=== PATIENT | male | born 1995 | race Two or more races ===

== ENCOUNTER 2019-09-26 13:01 | Emergency (ER) | payer MEDICAID ==
[~2019-09-26] VITALS: Ht 172.7 cm; Wt 86.4 kg
[2019-09-26 13:42] VITALS: BP 150/80
[2019-09-26] MEDS ORDERED: azithromycin 250mg tablet PO ONE (13:50)
[2019-09-26] MEDS ORDERED: CefTRIAXone 250MG IM Kit w/LIDOcaine IM ONE (13:50)
[2019-09-26] MEDS ORDERED: metroNIDAZOLE 500mg tablet PO ONE (13:50)
[2019-09-26] MEDS ORDERED: FLUC100T PO (14:00)
[2019-09-26 14:18] LABS: CLARITY,URINE CLOUDY (Clear); COLOR,URINE YELLOW (Yellow); GLUCOSE, URINE NEGATIVE (Neg); KETONES,URINE NEGATIVE (Neg); LEUKOCYTE ESTERASE ,URINE TRACE (Neg); NITRITES, URINE NEGATIVE (Neg); OCCULT BLOOD,URINE NEGATIVE (Neg); PROTEIN,URINE NEGATIVE (Neg); UA COLLECTION TYPE VOIDED; UROBILINOGEN,URINE >=8.0 E.U/dL (0.2-1.0)
[2019-09-26 14:23] LABS: MUCUS STRANDS MANY /LPF (Neg); SQUAMOUS EPITHELIAL CELL,UR FEW /LPF (FEW)
[2019-09-26 14:24] LABS: BACTERIA,URINE FEW /HPF (Neg); RBC,URINE 0-2 /HPF (0-2); WBC,URINE 20-30 /HPF (0-4)
== END 2019-09-26 14:33 | disposition home or self-care (01) ==
LOC: ER 13:02
DX: A64 Unspecified sexually transmitted disease (principal); R36.9 Urethral discharge, unspecified; Z79.899 Other long term (current) drug therapy
CPT/HCPCS: 36415; 81001; 87088; 87491; 87591; 96372; 99283; J0696; J3490

== ENCOUNTER 2025-06-12 21:26 | Emergency (ER) | payer MEDICAID ==
[2025-06-12] MEDS: morphine 4 MG/ML inj SYRINge IV ONE (21:49)
[2025-06-12] MEDS: ondansetron/PF 4mg/2ml inj IV ONE (21:50)
[2025-06-12 21:55] VITALS: TEMP 98.2
--- NOTE | 2025-06-12 22:07 | Physician Documentation ---
History of Present Illness ~ Chief Complaint: Abdominal Pain Stated Complaint: CP Time Seen by MD: 21:40 Source: patient Mode of Arrival: Ambulatory Exam Limitations: no limitations HPI Chief Complaint: Abdominal pain Caveat: None Independent Historians: None History of Present Illness: Patient is a 30-year-old man who has a distant history of alcoholism. Patient states that he has been sober for nine months. Patient comes in complaining of acute epigastric pain that began earlier this evening after eating [employer]. Patient had been juicing for a month to help treat his diabetes. Patient is not on any medications. Patient believes he has had a heart attack in the past but has never had any workup confirming that. Patient has associated nausea. No vomiting. No diarrhea. No fever. No alleviating or exacerbating factors. The pain is sharp, constant and nonradiating. Review of systems: All systems were reviewed and are negative except for what is indicated in the history of present illness. Past Medical History: Type 2 diabetes Past Surgical History: None Social History: Former tobacco user, smokes marijuana, denies other drug use, sober from alcohol for nine months. Medications: Reviewed as documented Nursing Notes Allergies: Reviewed as documented in Nursing Notes Medication Reconciliation Allergies: Coded Allergies: No Known Allergies (Unverified , 06/12/25) Past Medical History Past Medical History: No Pertinent History Past Surgical History: noncontributory Alcohol Use: None Drug Use: none Review of Systems All Other Systems at this time: Reviewed and Negative ROS Patient denies any other acute symptoms other than above. All other systems are negative Physical Exam Vital Signs: RN Vital Signs have been reviewed: Yes, Temperature: 98.2, Source: Oral, Heart Rate: 81, Respiratory Rate: 16, BP: 151/103, Pulse Oximetry: 99 Oxygen Flow Rate: 0 Pulse Oximetry Reflects: adequate oxygenation Physical Exam General Appearance: Moderate distress HEENT: Normal OP, moist oral mucosa, PERRL, EOMI Neck: supple, normal ROM, trachea midline Pulmonary: No respiratory distress, CTA, BS equal Cardiac: RRR, no murmur, rub or gallop, GI: nondistended, soft, NONTENDER, normal bowel sounds, no guarding, no rebound Extremities: normal ROM, no swelling, non-tender Skin: intact, dry, warm, no rashes Neuro: AAOx3, speech is clear, no focal motor weakness Psych: normal affect, good eye contact, no apparent hallucination, normal speech Progress Results/Orders Results/Orders Orders - MARKO ALCANTAR MD Electrocardiogram (06/12/25 ) Chest,Single View (06/12/25 22:20) Monitor (06/12/25 22:01) Saline Lock (06/12/25 22:01) Oxygen (06/12/25 22:01) Hs Troponin I W Calculations (06/13/25 01:01) Urinalysis, Cult If Indicated (06/12/25 22:01) Straight Cath For Urine Sample (06/12/25 22:01) Ultrasound Of Abdomen (06/12/25 ) Completed Orders - MARKO ALCANTAR MD Morphine 4mg/Ml Inj. (Morphine Inj.) (06/12/25 21:45) Ondansetron Inj. (Zofran 4mg/2ml Vial) (06/12/25 21:45) Chest,Single View (06/12/25 22:20) Cbc/Diff (06/12/25 22:01) BMP (06/12/25 22:01) PBNP (06/12/25 22:01) Hs Troponin I W Calculations (06/12/25 22:01) Hs Troponin I W Calculations (06/13/25 00:01) Lipase (06/12/25 22:01) Ultrasound Of Abdomen (06/12/25 ) Liver Panel (06/12/25 21:51) Ketorolac Trometh 15mg/Ml Vial (Toradol (06/13/25 00:05) Mag & Alum Hydrox/Simeth Susp (Maalox Or (06/13/25 01:15) Sucralfate Tablet (Carafate Tablet) (06/13/25 01:15) Lidocaine 2% Viscous (Xylocaine 2% Visco (06/13/25 01:15) Medications Received in ER Medications (Trade) Dose Ordered Sig/Enrike Route PRN Reason Start Time Stop Time Status Last Admin Dose Admin (morphine inj.) 4 mg ONCE ONCE IV 06/12/25 21:45 06/12/25 21:47 DC 06/12/25 21:49 4 MG (Zofran 4mg/2ml vial) 4 mg ONCE ONCE IV 06/12/25 21:45 06/12/25 21:47 DC 06/12/25 21:50 4 MG (Toradol injection) 15 mg ONCE ONCE IV 06/13/25 00:05 06/13/25 00:06 DC 06/13/25 00:15 15 MG Vital Signs 06/12/25 06/12/25 06/12/25 06/12/25 21:29 21:49 21:55 21:58 Temp 97.8 98.2 Pulse 65 81 Resp 15 30 18 16 B/P (MAP) 151/103 (119) Pulse Ox 100 99 O2 Flow Rate 0 06/12/25 06/13/25 06/13/25 22:56 00:15 01:16 Pulse 67 68 Resp 18 16 16 B/P (MAP) 133/48 (76) 123/76 (92) Pulse Ox 97 96 O2 Flow Rate 0 Laboratory Tests Test 06/12/25 21:51 06/12/25 23:55 06/13/25 01:05 White Blood Count 8.0 Red Blood Count 5.09 Hemoglobin 12.3 L Hematocrit 38.1 L Mean Corpuscular Volume 74.8 L Mean Corpuscular Hemoglobin 24.2 L Mean Corpuscular Hemoglobin Concent 32.4 L Red Cell Distribution Width 15.8 H Platelet Count 270 Mean Platelet Volume 8.5 Neutrophils (%) (Auto) 39.8 L Lymphocytes (%) (Auto) 47.3 Monocytes (%) (Auto) 9.7 Eosinophils (%) (Auto) 2.4 Basophils (%) (Auto) 0.8 Neutrophils # (Auto) 3.2 Lymphocytes # (Auto) 3.8 Monocytes # (Auto) 0.8 Eosinophils # (Auto) 0.2 Basophils # (Auto) 0.1 CBC Comment Sodium Level 142 Potassium Level 3.5 Chloride Level 108 H Carbon Dioxide Level 25.7 Anion Gap 8 Blood Urea Nitrogen 9 Creatinine 1.22 H Estimated GFR/1.73 m2 69 BUN/Creatinine Ratio 7.4 L Glucose Level 105 H Calcium Level 9.5 Total Bilirubin 0.2 Direct Bilirubin 0.1 Aspartate Amino Transf (AST/SGOT) 25 Alanine Aminotransferase (ALT/SGPT) 47 Alkaline Phosphatase 81 Troponin I High Sensitivity 8 9 Pro-B-Type Natriuretic Peptide 159 H Total Protein 7.1 Albumin 3.9 Globulin 3.2 Albumin/Globulin Ratio 1.2 Lipase 37 Chemistry Comments Troponin I High Sens Percent Delta 12 Troponin I Hi Sens Absolute Change 1 Medical Decision Making Findings Differential diagnosis includes but is not limited to: Biliary colic, cholelithiasis, choledocholithiasis, gastritis, gastric ulcer, peptic ulcer, acute pancreatitis EKG independent interpretation: PERFORMED AT 10:07 P.M.. NORMAL SINUS RHYTHM, HEART RATE 71, NORMAL AXIS, NONSPECIFIC ST CHANGES Chest x-ray, single view, indication: CHEST PAIN Independent interpretation: LUNGS ARE CLEAR, NORMAL MEDIASTINUM, NORMAL CARDIAC [place] ABDOMINAL ULTRASOUND, INDICATION: EPIGASTRIC PAIN Impression: Gallbladder sludging with mild wall thickening. No sonographic chino's sign. Findings are equivocal for cholecystitis. If there is persistent clinical concern, HIDA scan may be obtained to further evaluate. Increased hepatic parenchymal echogenicity which is most commonly seen with fatty infiltration. Laboratory data independent interpretation: CBC: Anemia with a hemoglobin of 12.3 CMP: LFTs unremarkable. Creatinine is just mildly elevated at 1.22 Normal lipase. Troponins: Eight, nine Emergency department course/medical decision-making: Patient presents with upper abdominal pain. However the patient has really no abdominal tenderness. However given the acute nature of the abdominal pain an ultrasound of the gallbladder was obtained. Ultrasound findings showed some sludge and possibly mild gallbladder wall thickening. However the patient's presentation is not consistent with acute cholecystitis. Patient does have some sludge. Patient is given morphine 4 mg IV and Zofran 4 mg IV and Toradol 15 mg IV. Patient is feeling better. He has some residual pain. Patient is also given a GI cocktail. Patient is thought to be stable for discharge. There was no evidence of an acute medical or surgical emergency. There is a slim possibility the patient may have acute cholecystitis. However given the workup in the history this seems less likely. This is communicated to the patient. Patient is going to be discharged home and instructed to follow up with his doctor at [facility] for possible HIDA scan. If patient's pain continues or worsens he is instructed to return for repeat evaluation. Patient's presentation and workup is not consistent with the acute coronary syndrome. Consultation/communications: Departure Time of Disposition: :21 Disposition: HOME / SELF CARE / HOMELESS Impression: Primary Impression: Acute abdominal pain Additional Impression: Biliary sludge Condition: Improved Discharge Instructions: Abdominal Pain (Nonspecific) Additional Instructions: THE CAUSE OF YOUR PAIN MAY OR MAY NOT BE FROM YOUR GALLBLADDER. RECOMMEND FOLLOWING UP WITH YOUR DOCTOR AT THE [facility]. CONSIDER HAVING THEM PERFORM AND ORDER A HIDA SCAN TO EVALUATE THE FUNCTION OF YOUR GALLBLADDER. RETURN TO THE ER IF YOUR ABDOMINAL PAIN WORSENS OR IF YOU DEVELOP A FEVER. Referrals: NO PRIMARY CARE PROVIDER (PCP) Signature Scribe Signature: No scribe Attestation: No scribe MARKO ALCANTAR MD Jun 12, 2025 22:07
[2025-06-12 22:17] LABS: MEAN PLATELET VOLUME 8.5 FL (7.4-10.4); RED CELL DISTRIBUTION WIDTH 15.8 % (11.5-14.5)
[2025-06-12 22:38] LABS: CREATININE 1.22 MG/DL (0.60-1.10); PRO BRAIN NATRIURETIC PEPTIDE 159 PG/ML (0-125); TOTAL CARBON DIOXIDE 25.7 MMOL/L (24-32); eGFR 69 ML/MIN
--- NOTE | 2025-06-12 22:45 | RADIOLOGY REPORT ---
CHEST RADIOGRAPH Indication: CP Technique: Single frontal view of the chest was obtained COMPARISON: None FINDINGS: Lines and Tubes: None Lungs: Clear Pleura: No effusion. No pneumothorax. Cardiomediastinal contours: Unremarkable Bones: Unremarkable IMPRESSION: 1. No acute disease.
--- NOTE | 2025-06-12 23:26 | RADIOLOGY REPORT ---
RIGHT UPPER QUADRANT ABDOMINAL ULTRASOUND CLINICAL HISTORY: abd pain r/o gallstones COMPARISON: None TECHNIQUE: Grayscale and color Doppler ultrasound imaging of the right upper quadrant is performed. FINDINGS: Abdominal aorta: Visualized portions appear normal caliber. Pancreas: Partially obscured by artifact from bowel gas. Liver: Measures approximately 17 cm in length. Increased hepatic parenchymal echogenicity. No discre te hepatic lesions as visualized. The portal vein appears patent. Gallbladder: Dependent sludging noted within the gallbladder. Gallbladder wall thickness 3.3 cm. No sonographic chino's sign. Common bile duct: Nondilated. Right Kidney: Measures approximately 10.2 cm in length. No hydronephrosis. Right upper quadrant Inferior vena cava: Visualized portions are grossly patent. IMPRESSION: Gallbladder sludging with mild wall thickening. No sonographic chino's sign. Findings are equivocal for cholecystitis. If there is persistent clinical concern, HIDA scan may be obtained to further goyo luate. Increased hepatic parenchymal echogenicity which is most commonly seen with fatty infiltration.
[2025-06-13] MEDS: ketorolac trometh 15mg/ml vial 15 MG/ML ML IV ONE (00:15)
[2025-06-13 01:16] VITALS: BP 123/76; PULSE 68; RESP 16; O2SAT 96
[2025-06-13] MEDS: LIDOcaine 2% Viscous 15ml cup MM ONE (01:25)
[2025-06-13] MEDS: mag hydrox/Alum hydrox/simeth 30ml oral suspension PO ONE (01:25)
--- NOTE | 2025-06-13 10:03 | ELECTROCARDIOGRAPH REPORT ---
[facility] Test Date: 2025-06-12 Test Time: 22:07:01 Pat Name: YOUSIF HOFFMAN Department: EMERGENCY ROOM Room: Gender: M [employer]: EDDY FORMAN : 1995 Requested By: MARKO ALCANTAR Order Number: [id number] Reading MD: Measurements Intervals [place] Rate: 71 P: 20 WA: 195 QRS: 28 QRSD: 92 T: 32 QT: 349 QTc: 380 Interpretive Statements Sinus rhythm Borderline T wave abnormalities Please click the below link to view image of tracing.
== END 2025-06-13 01:39 | disposition home or self-care (01) ==
LOC: ER 21:26
DX: R10.13 Epigastric pain (principal); D64.9 Anemia, unspecified; E11.9 Type 2 diabetes mellitus without complications; F12.90 Cannabis use, unspecified, uncomplicated
CPT/HCPCS: 36415; 71045; 76700; 80048; 80076; 83690; 83880; 84484; 85025; 93005; 96374; 96375; 99285; J1885; J2270; J2405; A4615